=== PATIENT | female | born 1970 | race Hispanic/Latino ===

== ENCOUNTER 2018-05-05 06:39 | Emergency (ER) | payer MEDICARE ==
[~2018-05-05] VITALS: Ht 175.3 cm; Wt 125.2 kg
--- OUTSIDE RECORDS SUMMARY | 2018-05-05 06:42 | XMS REPORT | Clinical Summary ---
Author [facility] Address Unknown Phone Unavailable Care Team Providers Care Exhibit Display Representative Name Role Phone Cecilia Rahman MD PCP Allergies Active Allergy Reactions Severity Noted Date Comments Chicken Derived Hives 02/12/2016 Ciprofloxacin (Bulk) Hives 02/12/2016 Egg Rash Low 02/12/2016 Latex, Natural Rubber Hives 02/12/2016 Allergic to bandaids, adhesive tape-Itch, rash, hives Milk Rash Low 02/12/2016 Nut Flavor Swelling Medium 02/12/2016 Peanuts/pecans Ondansetron Hcl Rash Low 02/12/2016 Bent Hives 02/12/2016 Sulfa (Sulfonamide Other (See Comments) Medium 02/12/2016 Shortness of breath Antibiotics) Hydrocodone-Acetaminophen Hives 02/12/2016 Pt. States can take with Benadryl. Can tolerate Dilaudid and morphine. Current Medications Prescription Sig. Disp. Refills Start End Date Status Date traZODone (DESYREL) 100 Take 200 mg by mouth 01/30/20 Active MG tablet nightly. 16 SUMAtriptan (IMITREX) 100 Take 1 tablet by mouth at 01/26/20 Active MG tablet onset of headache. Repeat 16 after 2 hours if needed. Maximum 200mg/24 hours.. propranolol (INDERAL) 20 Take 20 mg by mouth 3 01/26/20 Active MG tablet (three) times a day. 16 montelukast (SINGULAIR) Take 10 mg by mouth 03/12/20 Active 10 mg tablet nightly. 15 methotrexate 2.5 MG Take 20 mg by mouth once 12/08/19 Active tablet a week. 8 tabs weekly on Sundays levothyroxine (SYNTHROID) Take 88 mcg by mouth 03/12/20 Active 88 MCG tablet every morning. 15 fluticasone (FLONASE) 50 1 spray 2 (two) times a 05/19/20 Active mcg/actuation nasal spray day. 15 cycloSPORINE (RESTASIS) Administer 1 drop to both 11/05/19 Active 0.05 % ophthalmic eyes every 12 (twelve) 15 emulsion hours. clonAZEPAM (KlonoPIN) 2 Take 2 mg by mouth 3 01/26/20 Active MG tablet (three) times a day. 16 busPIRone (BUSPAR) 10 MG Take 20 mg by mouth 3 01/30/20 Active tablet (three) times a day. 16 ARIPiprazole (ABILIFY) 10 Take 10 mg by mouth 01/30/20 Active MG tablet nightly. 16 ipratropium-albuterol Inhale 2 puffs every 4 09/26/19 Active (COMBIVENT) 18-103 (four) hours as needed 14 mcg/actuation inhaler for wheezing or shortness of breath. tiZANidine (ZANAFLEX) 4 Take 4 mg by mouth every Active MG tablet 8 (eight) hours as needed for muscle spasms. budesonide-formoterol Inhale 2 puffs 2 (two) 01/18/20 Active (SYMBICORT) 160-4.5 times a day. 17 mcg/actuation inhaler aspirin (ECOTRIN) 81 MG Take 81 mg by mouth Active enteric coated tablet daily. omeprazole (PriLOSEC) 40 TAKE ONE CAPSULE BY MOUTH 90 capsule 5 05/06/20 Active MG capsuleIndications: EVERY DAY BEFORE 17 Status post bariatric BREAKFAST surgery, Morbid obesity due to excess calories (HCC) cyanocobalamin, vitamin Place 1 tablet under the Active B-12, (VITAMIN B-12) tongue daily. 1,000 mcg tablet, sublingual pregabalin (LYRICA) 75 MG Take 100 mg by mouth 3 Active capsule (three) times a day. therapeutic multivitamin Take 1 tablet by mouth Active (THERAGRAN) tablet daily. divalproex (DEPAKOTE) 500 Take 1,000 mg by mouth Active MG EC tablet every morning. divalproex (DEPAKOTE) 500 Take 500 mg by mouth Active MG EC tablet nightly. predniSONE (DELTASONE) 5 Take 20 mg by mouth 2 Active mg tablet (two) times a day. methocarbamol (ROBAXIN) Take 500 mg by mouth as Active 500 MG tablet needed for muscle spasms. DULoxetine (CYMBALTA) 30 TK 1 C PO D FOR 2 WEEKS. 0 04/03/20 Active MG capsule INCREASE TO 1 C 2 XD 18 THEREAFTER acetaminophen-codeine TK 1 T PO Q SIX H PRN P 2 04/10/20 Active (TYLENOL WITH CODEINE #3) 18 300-30 mg per tablet furosemide (LASIX) 20 mg TK 1 T PO BID 2 03/21/20 Active tablet 18 hydrOXYzine (ATARAX) 25 TK 1 T PO NIGHTLY HS PRF 11 03/21/20 Active MG tablet ITCHING 18 methocarbamol (ROBAXIN) 04/10/20 Active 750 MG tablet 18 promethazine (PHENERGAN) TK 1 T PO Q 6 H FOR UP TO 0 04/03/20 Active 25 MG tablet 7 DAYS PRF NAUSEA OR VOM 18 triamcinolone (KENALOG) TORO EXT AA BID 0 04/03/20 Active 0.1 % cream 18 cyanocobalamin, vitamin Place 1 tablet under the 30 each 5 04/20/20 05/20/20 Active B-12, (VITAMIN B-12) tongue daily for 30 days. 18 18 1,000 mcg tablet, sublingual omeprazole (PriLOSEC) 40 Take 1 capsule (40 mg 30 capsule 3 04/20/20 08/18/19 Active MG capsule total) by mouth daily for 18 19 120 days. hyoscyamine (LEVSIN/SL) Take 1 tablet (0.125 mg 30 tablet 0 05/02/20 06/01/20 0.125 mg SL tablet total) by mouth every 4 17 17 (four) hours as needed for cramping for up to 30 days. Active Problems Problem Noted Date Dehydration 04/05/2017 Gastric bypass status for obesity 03/28/2017 Encounters Date Type Specialty Care Team Description 04/20/2018 Office Visit General Surgery Verena Craig PA Weight loss (Primary Dx); BMI 40.0-44.9, adult (HCC); Lupus erythematosus, unspecified form; Anxiety and depression; Essential hypertension; Other hyperlipidemia; Other specified hypothyroidism 04/20/2018 Lab Lab Dean Parmar MD Bariatric surgery status (Primary Dx); Morbid obesity (HCC); Idiopathic steatorrhea 03/21/2018 Refill General Surgery Dean Parmar MD 06/29/2017 Orders Only General Surgery Joel Villeda, JESSI Status post bariatric surgery (Primary Dx); Morbid obesity due to excess calories; Intestinal malabsorption, unspecified type 06/15/2017 Orders Only General Surgery Alisha Paul MA Morbid (severe) obesity due to excess calories (Primary Dx); Vitamin deficiency; Weight loss; Intestinal malabsorption, unspecified type; Status post bariatric surgery; Hyperlipidemia, unspecified hyperlipidemia type; Hypothyroidism, unspecified type after 05/04/2017 Family History Medical History Relation Name Comments Diabetes Father Heart disease Father Hypertension Mother Relation Name Status Comments Father Mother Social History Tobacco Use Types Packs/Day Years Used Date Never Smoker Smokeless Tobacco: Never Used Alcohol Use Drinks/Week oz/Week Comments No Sex Assigned at Date Recorded Not on file Last Filed Vital Signs Vital Sign Reading Time Taken Blood Pressure 124/85 04/20/2018 10:20 AM CDT Pulse 68 04/20/2018 10:20 AM CDT Temperature 35.9 C (96.6 F) 04/20/2018 10:20 AM CDT Respiratory Rate 18 04/20/2018 10:20 AM CDT Oxygen Saturation 97% 04/20/2018 10:20 AM CDT Inhaled Oxygen - - Concentration Weight 126 kg (276 lb 12.8 oz) 04/20/2018 10:20 AM CDT Height 175.3 cm (5' 9") 04/20/2018 10:20 AM CDT Body Mass Index 40.88 04/20/2018 10:20 AM CDT Plan of Treatment Health Maintenance Due Date Last Done Comments CERVICAL CANCER SCREENING 1992 INFLUENZA VACCINE 02/15/2018 Implants Implanted Type Area Cad Designer Drafter Device Expiration Model / Identifier Date Serial / Lot Drain Wound Hbls [facility] Surgical N/A: N/A 2229 / Trocar Ashley White 0.18in 15fr - Implants; / [id number] Expanders; Implanted: 03/28/2017 (Quantity not Extenders; on file) Surgical Wires Procedures Procedure Name Priority Date/Time Associated Diagnosis Comments ESTIMATED GFR Routine 04/20/2018 Results for this 10:08 AM CDT procedure are in the results section. T3 Routine 04/20/2018 Bariatric surgery status Results for this 10:08 AM CDT Morbid obesity (HCC) procedure are in the Idiopathic steatorrhea results section. ZINC LEVEL, SERUM Routine 04/20/2018 Bariatric surgery status Results for this 10:08 AM CDT Morbid obesity (HCC) procedure are in the Idiopathic steatorrhea results section. VITAMIN B1 LEVEL, WHOLE Routine 04/20/2018 Bariatric surgery status Results for this BLOOD 10:08 AM CDT Morbid obesity (HCC) procedure are in the Idiopathic steatorrhea results section. FERRITIN LEVEL Routine 04/20/2018 Bariatric surgery status Results for this 10:08 AM CDT Morbid obesity (HCC) procedure are in the Idiopathic steatorrhea results section. FOLATE LEVEL Routine 04/20/2018 Bariatric surgery status Results for this 10:08 AM CDT Morbid obesity (HCC) procedure are in the Idiopathic steatorrhea results section. COPPER LEVEL, SERUM Routine 04/20/2018 Bariatric surgery status Results for this 10:08 AM CDT Morbid obesity (HCC) procedure are in the Idiopathic steatorrhea results section. VITAMIN D 25 HYDROXY Routine 04/20/2018 Bariatric surgery status Results for this LEVEL 10:08 AM CDT Morbid obesity (HCC) procedure are in the Idiopathic steatorrhea results section. VITAMIN B12 LEVEL Routine 04/20/2018 Bariatric surgery status Results for this 10:08 AM CDT Morbid obesity (HCC) procedure are in the Idiopathic steatorrhea results section. VITAMIN A LEVEL, PLASMA Routine 04/20/2018 Bariatric surgery status Results for this OR SERUM 10:08 AM CDT Morbid obesity (HCC) procedure are in the Idiopathic steatorrhea results section. PARATHYROID HORMONE Routine 04/20/2018 Bariatric surgery status Results for this 10:08 AM CDT Morbid obesity (HCC) procedure are in the Idiopathic steatorrhea results section. HEMOGLOBIN A1C Routine 04/20/2018 Bariatric surgery status Results for this 10:08 AM CDT Morbid obesity (HCC) procedure are in the Idiopathic steatorrhea results section. THYROID STIMULATING Routine 04/20/2018 Bariatric surgery status Results for this HORMONE 10:08 AM CDT Morbid obesity (HCC) procedure are in the Idiopathic steatorrhea results section. T4, FREE Routine 04/20/2018 Bariatric surgery status Results for this 10:08 AM CDT Morbid obesity (HCC) procedure are in the Idiopathic steatorrhea results section. TOTAL IRON BINDING Routine 04/20/2018 Bariatric surgery status Results for this CAPACITY 10:08 AM CDT Morbid obesity (HCC) procedure are in the Idiopathic steatorrhea results section. LIPID PANEL Routine 04/20/2018 Bariatric surgery status Results for this 10:08 AM CDT Morbid obesity (HCC) procedure are in the Idiopathic steatorrhea results section. HC COMPLETE BLD COUNT Routine 04/20/2018 Bariatric surgery status Results for this W/AUTO DIFF 10:08 AM CDT Morbid obesity (HCC) procedure are in the Idiopathic steatorrhea results section. COMPREHENSIVE METABOLIC Routine 04/20/2018 Bariatric surgery status Results for this PANEL 10:08 AM CDT Morbid obesity (HCC) procedure are in the Idiopathic steatorrhea results section. after 05/04/2017 Results * Estimated GFR (04/20/2018 10:08 AM) Estimated GFR 82 mL/min/1.73 m2 [facility] DEPARTMENT OF Comment: PATHOLOGY AND [employer] GENOMIC MEDICINE rpretation G1 >=90 Normal or high G2 60-89Mildly decreased [id number] Mildly to moderately decreased [id number] Moderately to severely decreased G4 15-29Severely decreased G5 <15Kidney failure The eGFR was calculated using the Chronic Kidney Disease Epidemiology Collaboration (CKD-EPI) equation. Interpretation is based on recommendations of the National Kidney Foundation-Kidney Disease Outcomes Quality Initiative (NKF-KDOQI) published in 2014. Specimen Plasma specimen Performing Organization Address [facility] Phone Number [address] * Total iron binding capacity (04/20/2018 10:08 AM) Iron level 43 37 - 145 ug/dL [facility] OF PATHOLOGY [facility] Iron binding capacity 447 (H) 200 - 400 ug/dL [facility] OF PATHOLOGY AND [facility] % Saturation 9.6 (L) 15.0 - 38.0 % [facility] PATHOLOGY [facility] Specimen Plasma specimen Performing Organization Address [facility] Phone Number [address] * Copper level, serum (04/20/2018 10:08 AM) Copper 124 80 - 155 ug/dL [facility] Comment: INTERPRETIVE INFORMATION: Copper, Serum or Plasma Serum copper may be elevated with infection, inflammation, stress, and copper supplementation. In females, elevated copper may also be caused by oral contraceptives and (concentrations may be elevated up to 3 times normal during the third trimester). Serum copper may be reduced by use of corticosteroids and zinc and by malnutrition or malabsorption. See Compliance Statement B at [email or web address] Performed by [facility], [address] [place] [address] [email or web address], Ambrocio Luna MD - Lab. Director Specimen Blood Performing Organization Address [facility] Phone Number [facility] [address] [place] [address] * Vitamin B1 level, whole blood (04/20/2018 10:08 AM) Vitamin B1 88 70 - 180 nmol/L [facility] Comment: INTERPRETIVE INFORMATION: Vitamin B1, Whole Blood This assay measures the concentration of thiamine diphosphate (TDP), the primary active form of vitamin B1. Approximately 90 percent of vitamin B1 present in whole blood is TDP. Thiamine and thiamine monophosphate, which comprise the remaining 10 percent, are not measured. Test developed and characteristics determined by [employer]. See Compliance Statement B: [employer]/CS Performed by [employer], [address] [place] [id number] [email or web address], Ambrocio Luna MD - Lab. Director Specimen Plasma specimen Performing Organization Address [facility] [place], [place] Phone Number [facility] [address] [place] [address] * Zinc level, serum (04/20/2018 10:08 AM) Zinc 77 60 - 120 ug/dL [facility] Comment: INTERPRETIVE INFORMATION: Zinc, Serum or Plasma Circulating zinc concentrations are dependent on albumin status and are depressed with malnutrition. Zinc may also be lowered with infection, inflammation, stress, oral contraceptives, and . Zinc may be elevated with zinc supplementation or fasting. Elevated zinc concentrations may interfere with copper absorption. Test developed and characteristics determined by [employer]. See Compliance Statement B: [employer]/CS Performed by [employer] [facility], [address] [place] [id number] [email or web address], Ambrocio Luna MD - Lab. Director Specimen Blood Performing Organization Address [facility] Phone Number [facility] [address] [place] [address] * Vitamin A level, plasma or serum (04/20/2018 10:08 AM) Vitamin A (retinol) 0.47 0.30 - 1.20 mg/L [facility] Retinyl palmitate <0.02 0.00 - 0.10 mg/L [facility] Vitamin A interpretation Normal [facility] Comment: Test developed and characteristics determined by [employer]. See Compliance Statement B: [employer]/CS Performed by [employer] [facility], [address] [place] [address] [email or web address], Ambrocio Luna MD - Lab. Director Specimen Plasma specimen Performing Organization Address [facility]/Zipcode Phone Number [facility] [address] [place] [address] * Vitamin D 25 hydroxy level (04/20/2018 10:08 AM) Vitamin D, 25-hydroxy 13.5 (L) 30.0 - 150.0 ng/mL [facility] DEPARTMENT OF Comment: PATHOLOGY AND This assay reports the sum of GENOMIC MEDICINE 25-hydroxy vitamin D3 and 25-hydroxy vitamin D2. Reference range: 0-17 years: Deficiency: less than 20ng/mL Optimum level: greater than or equal to 20 ng/mL. 18 years and older: Deficiency: less than 20ng/mL Insufficiency: 20-29 ng/mL Optimum Level: 30-80 ng/mL The assay reportable range is 3.4155.9 ng/mL. Levels higher than 150 ng/mL may be associated with toxicity. If toxicity is clinically suspected and the reported result is >155.9 ng/mL,contact lab for alternative methods to obtain a definitivelevel. If separate quantitation of 25-hydroxy vitamin D3 and 25-hydroxy vitamin D2 is needed, please contact lab for alternative methods. Specimen Blood Performing Organization Address [facility]/Zipcode Phone Number [address] [address] PATHOLOGY AND GENOMIC MEDICINE * CBC with platelet and differential (04/20/2018 10:08 AM) WBC 6.14 4.50 - 11.00 k/uL [facility] DEPARTMENT OF PATHOLOGY AND GENOMIC MEDICINE RBC 4.42 4.20 - 5.50 m/uL [facility] DEPARTMENT OF PATHOLOGY AND GENOMIC MEDICINE HGB 11.4 (L) 12.0 - 16.0 g/dL [facility] DEPARTMENT OF PATHOLOGY AND GENOMIC MEDICINE HCT 37.8 37.0 - 47.0 % [facility] DEPARTMENT OF PATHOLOGY AND GENOMIC MEDICINE MCV 85.5 82.0 - 100.0 fL [facility] DEPARTMENT OF PATHOLOGY AND GENOMIC MEDICINE MCH 25.8 (L) 27.0 - 34.0 pg [facility] DEPARTMENT OF PATHOLOGY AND GENOMIC MEDICINE MCHC 30.2 (L) 31.0 - 37.0 g/dL [facility] DEPARTMENT OF PATHOLOGY AND GENOMIC MEDICINE RDW - SD 47.0 37.0 - 55.0 fL [facility] DEPARTMENT OF PATHOLOGY AND GENOMIC MEDICINE MPV 9.2 8.8 - 13.2 fL [facility] DEPARTMENT OF PATHOLOGY AND GENOMIC MEDICINE Platelet count 369 150 - 400 k/uL [facility] DEPARTMENT OF PATHOLOGY AND GENOMIC MEDICINE Nucleated RBC 0.00 /100 WBC [facility] DEPARTMENT OF PATHOLOGY AND GENOMIC MEDICINE Neutrophils 51.0 39.0 - 69.0 % [facility] DEPARTMENT OF PATHOLOGY AND GENOMIC MEDICINE Lymphocytes 40.2 25.0 - 45.0 % [facility] DEPARTMENT OF PATHOLOGY AND GENOMIC MEDICINE Monocytes 6.5 0.0 - 10.0 % [facility] DEPARTMENT OF PATHOLOGY AND GENOMIC MEDICINE Eosinophils 1.8 0.0 - 5.0 % [facility] DEPARTMENT OF PATHOLOGY AND GENOMIC MEDICINE Basophils 0.2 0.0 - 1.0 % [facility] DEPARTMENT OF PATHOLOGY AND GENOMIC MEDICINE Immature granulocytes 0.3Comment: "Immature 0.0 - 1.0 % [facility] DEPARTMENT OF granulocytes" (promyelocytes, PATHOLOGY AND myelocytes, metamyelocytes) GENOMIC MEDICINE Specimen Blood Performing Organization Address [facility] [address] PATHOLOGY AND GENOMIC MEDICINE * T3 (04/20/2018 10:08 AM) T3 72 (L) 80 - 200 ng/dL [facility] DEPARTMENT OF PATHOLOGY AND GENOMIC MEDICINE Specimen Plasma specimen Performing Organization Address [facility] [address] PATHOLOGY AND [facility] MEDICINE * Thyroid stimulating hormone (04/20/2018 10:08 AM) TSH 2.65 0.27 - 4.20 uIU/mL [facility] DEPARTMENT OF PATHOLOGY AND GENOMIC MEDICINE Specimen Plasma specimen Performing Organization Address [facility] [address] PATHOLOGY AND [facility] MED[facility] * T4, free (04/20/2018 10:08 AM) T4, free 0.9 0.9 - 1.7 ng/dL [facility] DEPARTMENT OF PATHOLOGY AND GENOMIC MEDICINE Specimen Plasma specimen Performing Organization Address [facility] [address] PATHOLOGY AND [facility] * Parathyroid hormone (04/20/2018 10:08 AM) PTH 70 (H) 15 - 65 pg/mL [facility] DEPARTMENT OF PATHOLOGY AND GENOMIC MEDICINE Specimen Blood Performing Organization Address [facility] [address] PATHOLOGY AND [facility] MED[facility] * Hemoglobin A1c (04/20/2018 10:08 AM) Hemoglobin A1C 5.7 (H) 4.0 - 5.6 % [facility] DEPARTMENT OF Comment: PATHOLOGY AND HbA1c cutoffs for diagnosing GENOMIC MEDICINE diabetes: 4.0% - 5.6%=normal 5.7% - 6.4%=increased risk for diabetes (prediabetes) >=6.5%=diabetes Goals for glycemic control (ADA 2016) < 7.0%Target for non adults with diabetes. More or less stringent targets may be appropriate for individual patients. <7.5% Target for Children and adolescents with type 1 diabetes. Specimen Blood Performing Organization Address [facility] [address] PATHOLOGY AND [facility] * Folate level (04/20/2018 10:08 AM) Folate 11.4 4.8 - 24.2 ng/mL [facility] DEPARTMENT OF PATHOLOGY AND GENOMIC MEDICINE Specimen Serum Performing Organization Address [facility] [address] PATHOLOGY AND [facility] * Ferritin level (04/20/2018 10:08 AM) Ferritin level <13 (A) 13 - 150 ng/mL [facility] DEPARTMENT OF PATHOLOGY AND GENOMIC MEDICINE Specimen Plasma specimen Performing Organization Address [facility] [address] PATHOLOGY AND [facility] * Vitamin B12 level (04/20/2018 10:08 AM) Vitamin B12 269 211 - 946 pg/mL [facility] DEPARTMENT OF Comment: PATHOLOGY AND Significant overlap exists GENOMIC MEDICINE between normal and deficiency states. However, most patients with deficiencies will have Serum B12 <200 pg/mL. Specimen Serum Performing Organization Address [facility]/Zipcode Phone Number [address] [address] PATHOLOGY AND GENOMIC MEDICINE * Lipid panel (04/20/2018 10:08 AM) Cholesterol 149 <200 mg/dL [facility] DEPARTMENT OF PATHOLOGY AND GENOMIC MEDICINE Triglycerides 98 <150 mg/dL [facility] DEPARTMENT OF PATHOLOGY AND GENOMIC MEDICINE HDL cholesterol 56 >40 mg/dL [facility] DEPARTMENT OF PATHOLOGY AND GENOMIC MEDICINE LDL cholesterol 83Comment: Result obtained by <100 mg/dL [facility] DEPARTMENT OF direct LDL measurement PATHOLOGY AND GENOMIC MEDICINE Lipid panel SeeBelow [facility] DEPARTMENT OF interpretation Comment: PATHOLOGY AND Total Cholesterol GENOMIC MEDICINE (mg/dL) <200 Desirable 200-239Borderline -high >=240High Triglycerides (mg/dL) <150 Normal 150-199Borderline -high 200-499High >=500Very high HDL Cholesterol (mg/dL) <40Low (male) <40Low (female) LDL Cholesterol (mg/dL) <100 Optimal 100-129Near or above optimal 130-159Borderline -high 160-189High >=190Very high Risk Catergories that modify LDL goals. Risk Catergories LDL goal (mg/dL) CHD and CHD risk equivalent<100 (10-year risk >20%) Multiple (2+) risk factors <130 (10-year risk=<20%) 0-1 risk factors <160 (<10-year risk) Defining levels of lipids in metabolic syndrome Triglycerides >=150 mg/dL HDL Cholesterol Men <40 mg/dL Women <40 mg/dL Non-HDL cholesterol is a second target for therapy in persons with high triglycerides (>=200 mg/dL) Specimen Plasma specimen Performing Organization Address City/State/[place] Phone Number [address] [address] PATHOLOGY AND GENOMIC MEDICINE * Comprehensive metabolic panel (04/20/2018 10:08 AM) Sodium 143 135 - 148 mEq/L [facility] DEPARTMENT OF PATHOLOGY AND GENOMIC MEDICINE Potassium 4.5 3.5 - 5.0 mEq/L [facility] DEPARTMENT OF PATHOLOGY AND GENOMIC MEDICINE Chloride 103 98 - 112 mEq/L [facility] DEPARTMENT OF PATHOLOGY AND GENOMIC MEDICINE CO2 29 24 - 31 mEq/L [facility] DEPARTMENT OF PATHOLOGY AND GENOMIC MEDICINE Anion gap 11@ANIO 7 - 15 mEq/L [facility] DEPARTMENT OF PATHOLOGY AND GENOMIC MEDICINE BUN 16 6 - 20 mg/dL [facility] DEPARTMENT OF PATHOLOGY AND GENOMIC MEDICINE Creatinine 0.85 0.50 - 0.90 mg/dL [facility] DEPARTMENT OF PATHOLOGY AND GENOMIC MEDICINE Glucose 92 65 - 99 mg/dL [facility] DEPARTMENT OF PATHOLOGY AND GENOMIC MEDICINE Calcium 8.7 8.3 - 10.2 mg/dL [facility] DEPARTMENT OF PATHOLOGY AND GENOMIC MEDICINE Protein 7.4 6.3 - 8.3 g/dL [facility] DEPARTMENT OF Comment: PATHOLOGY AND [place] GENOMIC MEDICINE 4.6-7.0 g/dL 1 week 4.4-7.6 g/dL 7 months-1year 5.1-7.3 g/dL 1-2 years5.6-7 .5 g/dL >3 years6.0-8 .0 g/dL 18-150 6.3-8.3 g/dL Albumin 3.4 (L) 3.5 - 5.0 g/dL [facility] DEPARTMENT OF PATHOLOGY AND GENOMIC MEDICINE A/G ratio 0.8 0.7 - 3.8 [facility] DEPARTMENT OF PATHOLOGY AND GENOMIC MEDICINE Alkaline phosphatase 110 (H) 35 - 104 U/L [facility] DEPARTMENT OF PATHOLOGY AND GENOMIC MEDICINE AST 14 10 - 35 U/L [facility] DEPARTMENT OF PATHOLOGY AND GENOMIC MEDICINE ALT 8 5 - 50 U/L [facility] DEPARTMENT OF PATHOLOGY AND GENOMIC MEDICINE Total bilirubin 0.3 0.0 - 1.2 mg/dL [facility] DEPARTMENT OF PATHOLOGY AND GENOMIC MEDICINE Specimen Plasma specimen Performing Organization Address City/State/Zipcode Phone Number [facility] DEPARTMENT OF [address] [place] [address] PATHOLOGY AND GENOMIC MEDICINE after 05/04/2017 Insurance Payer Benefit Subscriber ID Type Phone Address Plan / Group AETNA MEDICARE AETNA xxxxxxxx HMO MEDICARE HMO/PPO [facility] MEDICAID MEDICAID xxxxxxxxx Medicaid
--- OUTSIDE RECORDS SUMMARY | 2018-05-05 06:42 | XMS REPORT | Continuity of Care Document ---
Author Author [facility] Interface Address Unknown Phone Unavailable Problems Problem Status Onset Date Classification Date Reported Comments Source DYSLIPIDEMIA Active 07/04/2013 Condition 07/04/2013 [facility] CELLULITIS AND ABSCESS OF OTHER SPECIFIED SITE Active 07/04/2013 Condition 07/04/2013 [facility] UNSPECIFIED HEART FAILURE Active 07/04/2013 Condition 07/04/2013 [facility] HYPOKALEMIA Active 04/10/2013 Condition 07/04/2013 [facility] DYSPNEA Active 04/10/2013 Condition 07/04/2013 [facility] HYPERGLYCEMIA Active 04/10/2013 Condition 07/04/2013 [facility] ANXIETY DEPRESSION Active 03/29/2013 Condition 07/04/2013 [facility] LUPUS Active 03/29/2013 Condition 07/04/2013 [facility] RAYNAUD'S DISEASE Active 03/29/2013 Condition 07/04/2013 [facility] HYPOTHYROIDISM Active 03/29/2013 Condition 07/04/2013 [facility] SLEEP APNEA Active 03/29/2013 Condition 07/04/2013 [facility] RECTAL BLEEDING Active 03/29/2013 Condition 07/04/2013 [facility] OTHER SCREENING MAMMOGRAM Active 03/29/2013 Condition 07/04/2013 [facility] OBESITY, CLASS III Active 03/29/2013 Condition 07/04/2013 [facility] ASTHMA Active Condition 07/04/2013 [facility] FH DIABETES - DM Active Condition 07/04/2013 [facility] Medications Medication Details Route Status Patient Instructions Ordering Provider Order Date Source AUGMENTIN 875-125 MG TABS take 1 tab po bid x 10 days Active 07/04/2013 [facility] ORALONE 0.1 % PSTE apply to mouth sores tid after meals Active 05/02/2013 [facility] LEVOTHYROXINE SODIUM 88 MCG TABS take 1 tab po qAM on empty stomach for thyroid Active 04/10/2013 [facility] ERGOCALCIFEROL 87848 UNIT CAPS take 1 tab po qweekly Active 04/10/2013 [facility] LEVOTHYROXINE SODIUM 88 MCG TABS take 1 tab po qAM on empty stomach for thyroid Active 04/10/2013 [facility] LORATADINE 10 MG TABS 1 po qd Active 03/29/2013 [facility] IBUPROFEN 200 MG TABS 4 po qd Active 03/29/2013 [facility] ABILIFY 10 MG TABS 1 po qd Active 03/29/2013 [facility] CYMBALTA 60 MG CPEP 2 po Qd Active 03/29/2013 [facility] SINGULAIR 10 MG TABS 1 po qhs Active 03/29/2013 [facility] METHOTREXATE 2.5 MG TABS take 8 tablet by mouth q week Active 03/29/2013 [facility] TRAZODONE HCL 100 MG TABS 2 po qhs Active 03/29/2013 [facility] NEXIUM 20 MG CPDR 2 po qd Active 03/29/2013 [facility] HYDRALAZINE HCL 10 MG TABS 1 po TID Active 03/29/2013 [facility] CLONAZEPAM 1 MG TABS 2 po TID Active 03/29/2013 [facility] HYDROXYCHLOROQUINE SULFATE 200 MG TABS 1 po BID Active 03/29/2013 [facility] GABAPENTIN 300 MG CAPS 1 po TID Active 03/29/2013 [facility] FOLIC ACID 1 MG TABS 1 po qd Active 03/29/2013 [facility] DIVALPROEX SODIUM 500 MG TBEC 1 po BID Active 03/29/2013 [facility] OPTIVAR 0.05 % SOLN 1 drop in each eye BID Active 03/29/2013 [facility] LORATADINE 10 MG TABS 1 po qd Active 03/29/2013 [facility] SINGULAIR 10 MG TABS 1 po qhs Active 03/29/2013 [facility] METHOTREXATE 2.5 MG TABS take 8 tablet by mouth q week Active 03/29/2013 [facility] TRAZODONE HCL 100 MG TABS 2 po qhs Active 03/29/2013 [facility] NEXIUM 20 MG CPDR 2 po qd Active 03/29/2013 [facility] GABAPENTIN 300 MG CAPS 1 po TID Active 03/29/2013 [facility] Allergies, Adverse Reactions, Alerts Substance Category Reaction Severity Reaction type Status Date Reported Comments Source TYLENOL Drug allergy TYLENOL 03/29/2013 [facility] CODEINE Drug allergy CODEINE 03/29/2013 [facility] MORPHINE Drug allergy MORPHINE 03/29/2013 [facility] Immunizations Immunization Date Given Site Status Last Updated Comments Source Results Order Name Results Value Reference Range Date Interpretation Comments Source Chemistry HGBA1C 5.1 % - 5.6 07/04/2013 [facility] CHOLESTEROL 163 mg/dl - 199 07/04/2013 [facility] Chemistry TRIGLYCERIDE 312 mg/dl - 149 07/04/2013 Medical [facility] Chemistry HDL 41 mg/dl >=61 07/04/2013 [facility] Chemistry LDL 60 mg/dl - 99 07/04/2013 [facility] Chemistry SODIUM 139 MEQ/L mmol/L 135 - 145 07/04/2013 [facility] Chemistry POTASSIUM 3.9 MEQ/L mmol/L 3.5 - 5.1 07/04/2013 [facility] Chemistry CREATININE 1.0 mg/dL 0.5 - 1.4 07/04/2013 [facility] Chemistry BUN 11 mg/dL 7 - 22 07/04/2013 Medical [facility] Chemistry BUN/CREAT 11 6 - 25 07/04/2013 [facility] Chemistry ALBUMIN 3.8 g/dL 3.5 - 5.0 07/04/2013 [facility] Chemistry CALCIUM 9.2 mg/dL 8.5 - 10.5 07/04/2013 [facility] Chemistry SGPT (ALT) 33 U/L 0 - 65 07/04/2013 [facility] Chemistry SGOT (AST) 29 U/L 0 - 37 07/04/2013 [facility] Chemistry ALK PHOS 71 U/L 39 - 136 07/04/2013 Medical [facility] Chemistry TSH 2.800 uIU/mL 0.360 - 3.740 07/04/2013 Medical [facility] Hematology HGB 13.3 g/dL 12.0 - 16.0 07/04/2013 Medical [facility] Hematology HCT 40.7 % 36.0 - 48.0 07/04/2013 Medical [facility] Hematology PLATELETS 349 K/CMM /mm3 133 - 450 07/04/2013 [facility] Chemistry CHOLESTEROL 207 mg/dl - 199 03/29/2013 [facility] Chemistry TRIGLYCERIDE 216 mg/dl - 149 03/29/2013 Medical [facility] Chemistry HDL 50 mg/dl >=61 03/29/2013 [facility] Chemistry CHOLESTEROL 207 mg/dl - 199 03/29/2013 [facility] Chemistry TRIGLYCERIDE 216 mg/dl - 149 03/29/2013 [facility] Chemistry HDL 50 mg/dl >=61 03/29/2013 Medical [facility] Chemistry LDL 114 mg/dl - 99 03/29/2013 [facility] Chemistry SODIUM 138 MEQ/L mmol/L 135 - 145 03/29/2013 [facility] Chemistry POTASSIUM 5.3 MEQ/L mmol/L 3.5 - 5.1 03/29/2013 [facility] Chemistry CREATININE 0.8 mg/dL 0.5 - 1.4 03/29/2013 [facility] Chemistry BUN 13 mg/dL 7 - 22 03/29/2013 Medical [facility] Chemistry BUN/CREAT 16 6 - 25 03/29/2013 Medical [facility] Chemistry ALBUMIN 3.6 g/dL 3.5 - 5.0 03/29/2013 Medical [facility] Chemistry CALCIUM 8.6 mg/dL 8.5 - 10.5 03/29/2013 [facility] Chemistry SGPT (ALT) 20 U/L 0 - 65 03/29/2013 [facility] Chemistry SGOT (AST) 35 U/L 0 - 37 03/29/2013 [facility] Chemistry ALK PHOS 80 U/L 39 - 136 03/29/2013 Medical [facility] Chemistry TSH 4.180 uIU/mL 0.360 - 3.740 03/29/2013 Medical [facility] Hematology HGB 13.0 g/dL 12.0 - 16.0 03/29/2013 Medical [facility] Hematology HCT 39.9 % 36.0 - 48.0 03/29/2013 Medical [facility] Hematology PLATELETS 289 K/CMM /mm3 133 - 450 03/29/2013 Medical [facility] Urinalysis UA COLOR Yellow 03/29/2013 Medical [facility] Urinalysis BACTERIA URN Occasional 03/29/2013 [facility] Urinalysis UA COLOR Yellow 03/29/2013 Medical [facility] Urinalysis BACTERIA URN Occasional 03/29/2013 Medical [facility] Vital Signs Vital Sign Value Date Comments Source Weight 348 07/04/2013 [facility] Temperature Oral (F) 98.1 F 07/04/2013 [facility] Heart Rate 92 07/04/2013 [facility] Systolic (mm Hg) 116 07/04/2013 [facility] Diastolic (mm Hg) 84 07/04/2013 [facility] Weight 358 04/10/2013 Medical [facility] Temperature Oral (F) 97.7 F 04/10/2013 Medical [facility] Heart Rate 95 04/10/2013 [facility] Systolic (mm Hg) 106 04/10/2013 [facility] Diastolic (mm Hg) 66 04/10/2013 [facility] Weight 354 03/29/2013 [facility] Height 68 03/29/2013 [facility] Heart Rate 106 03/29/2013 [facility] Temperature Oral (F) 98.3 F 03/29/2013 [facility] Systolic (mm Hg) 133 03/29/2013 [facility] Diastolic (mm Hg) 73 03/29/2013 [facility] Encounters Location Location Details Encounter Type Encounter Number Reason For Visit Attending Provider ADM Date DC Date Status Source [facility] Office Visit [id number] Deanna Epstein MD 04/10/2013 04/10/2013 Medical [facility] [place] Lab Report [id number] Deanna Epstein MD 04/15/2013 04/15/2013 Medical [facility] Office Visit [id number] Deanna Travis MD 07/04/2013 07/04/2013 Medical [facility] Lab Report [id number] Deanna Travis MD 07/04/2013 07/04/2013 [facility] Procedures Procedure Code Date Perfomer Comments Source
--- OUTSIDE RECORDS SUMMARY | 2018-05-05 06:42 | XMS REPORT | Continuity of Care Document ---
Author Author [facility] Address Unknown Phone Unavailable Care Team Providers Care Presiding Steward Name Role Phone Deanna Epstein MD, PP Unavailable Insurance Providers Payer name Policy type / Coverage type Policy ID Covered democrat ID Policy [place] [place] [employer] [place] [employer] Encounters Encounter Performer Location Date Office Visit Deanna Epstein MD [facility] Apr 10, 2013 Allergies, Adverse Reactions, Alerts Type Substance Reaction Status Drug allergy TYLENOL Active Drug allergy CODEINE Active Drug allergy MORPHINE Active Problems Problem Effective Dates Problem Status ASTHMA Active FH DIABETES - DM Active ANXIETY DEPRESSION Mar 29, 2013 Active LUPUS Mar 29, 2013 Active RAYNAUD'S DISEASE Mar 29, 2013 Active HYPOTHYROIDISM Mar 29, 2013 Active SLEEP APNEA Mar 29, 2013 Active RECTAL BLEEDING Mar 29, 2013 Active OTHER SCREENING MAMMOGRAM Mar 29, 2013 Active OBESITY, CLASS III Mar 29, 2013 Active HYPOKALEMIA Apr 10, 2013 Active DYSPNEA Apr 10, 2013 Active HYPERGLYCEMIA Apr 10, 2013 Active Procedures Date Description Comments Mar 29, 2013 smoking status never smoker Medications Medication Instructions Start Date Status LORATADINE 10 MG TABS 1 po qd Mar 29, 2013 Active IBUPROFEN 200 MG TABS 4 po qd Mar 29, 2013 Active ABILIFY 10 MG TABS 1 po qd Mar 29, 2013 Active CYMBALTA 60 MG CPEP 2 po Qd Mar 29, 2013 Active SINGULAIR 10 MG TABS 1 po qhs Mar 29, 2013 Active METHOTREXATE 2.5 MG TABS take 8 tablet by mouth q week Mar 29, 2013 Active TRAZODONE HCL 100 MG TABS 2 po qhs Mar 29, 2013 Active NEXIUM 20 MG CPDR 2 po qd Mar 29, 2013 Active HYDRALAZINE HCL 10 MG TABS 1 po TID Mar 29, 2013 Active CLONAZEPAM 1 MG TABS 2 po TID Mar 29, 2013 Active HYDROXYCHLOROQUINE SULFATE 200 MG TABS 1 po BID Mar 29, 2013 Active GABAPENTIN 300 MG CAPS 1 po TID Mar 29, 2013 Active FOLIC ACID 1 MG TABS 1 po qd Mar 29, 2013 Active DIVALPROEX SODIUM 500 MG TBEC 1 po BID Mar 29, 2013 Active OPTIVAR 0.05 % SOLN 1 drop in each eye BID Mar 29, 2013 Active LEVOTHYROXINE SODIUM 88 MCG TABS take 1 tab po qAM on empty stomach for thyroid Apr 10, 2013 Active ERGOCALCIFEROL 88775 UNIT CAPS take 1 tab po qweekly Apr 10, 2013 Active Vital Signs Date Description Test Result Mar 29, 2013 weight E&M - 3141-9 WEIGHT 354 lb Mar 29, 2013 height E&M - 8302-2 HEIGHT 68 in Mar 29, 2013 pulse rate E&M - 8867-4 PULSE RATE 106 /min Mar 29, 2013 temperature E&M TEMPERATURE 98.3 deg f Mar 29, 2013 blood pressure, systolic - 8480-6 BP SYSTOLIC 133 mm Hg Mar 29, 2013 blood pressure, diastolic - 8462-4 BP DIASTOLIC 73 mm Hg Apr 10, 2013 weight E&M - 3141-9 WEIGHT 358 lb Apr 10, 2013 temperature E&M TEMPERATURE 97.7 deg f Apr 10, 2013 pulse rate E&M - 8867-4 PULSE RATE 95 /min Apr 10, 2013 blood pressure, systolic - 8480-6 BP SYSTOLIC 106 mm Hg Apr 10, 2013 blood pressure, diastolic - 8462-4 BP DIASTOLIC 66 mm Hg Results Date Description Test Name Value Reference Interpretation Status Mar 29, 2013 hemoglobin, blood HGB 13.0 g/dL 12.0-16.0 Mar 29, 2013 hematocrit, blood HCT 39.9 % 36.0-48.0 Mar 29, 2013 platelet count PLATELETS 289 K/CMM /mm3 133-450 Mar 29, 2013 urine color UA COLOR Yellow null Yellow Mar 29, 2013 bacteria, urine microscopy BACTERIA URN Occasional null None Seen Mar 29, 2013 cholesterol, serum CHOLESTEROL 207 mg/dl <=199 High Mar 29, 2013 triglyceride, serum, fasting TRIGLYCERIDE 216 mg/dl <=149 High Mar 29, 2013 HDL cholesterol, serum HDL 50 mg/dl >=61 Low Mar 29, 2013 LDL cholesterol, serum LDL 114 mg/dl <=99 High Mar 29, 2013 sodium, serum SODIUM 138 MEQ/L mmol/L 135-145 Mar 29, 2013 potassium, serum POTASSIUM 5.3 MEQ/L mmol/L 3.5-5.1 High Mar 29, 2013 creatinine, serum CREATININE 0.8 mg/dL 0.5-1.4 Mar 29, 2013 urea nitrogen, blood BUN 13 mg/dL 7-22 Mar 29, 2013 urea nitrogen/creatinine ratio, serum BUN/CREAT 16 null 6-25 Mar 29, 2013 albumin, serum ALBUMIN 3.6 g/dL 3.5-5.0 Mar 29, 2013 calcium, serum CALCIUM 8.6 mg/dL 8.5-10.5 Mar 29, 2013 alanine aminotransferase (SGPT), serum SGPT (ALT) 20 U/L 0-65 Mar 29, 2013 aspartate aminotransferase (SGOT), serum SGOT (AST) 35 U/L 0-37 Mar 29, 2013 alkaline phosphatase, serum ALK PHOS 80 U/L 39-136 Mar 29, 2013 thyroid stimulating hormone, serum TSH 4.180 uIU/mL 0.360-3.740 High
--- OUTSIDE RECORDS SUMMARY | 2018-05-05 06:43 | XMS REPORT | Continuity of Care Document ---
Author Author [facility] Address Unknown Phone Unavailable Care Team Providers Care Community Resource Consultant Name Role Phone Lucian Travis MD, Deanna SOLIS Unavailable Insurance Providers Payer name Policy type / Coverage type Policy ID Covered democrat ID Policy [employer] [place] [employer] [id number] MED[place]: [employer] [id number] Encounters Encounter Performer Location Date Lab Report Deanna Travis MD [facility] Jul 04, 2013 Allergies, Adverse Reactions, Alerts Type Substance [...] 2013 Active HYPERGLYCEMIA Apr 10, 2013 Active DYSLIPIDEMIA Jul 04, 2013 Active CELLULITIS AND ABSCESS OF OTHER SPECIFIED SITE Jul 04, 2013 Active UNSPECIFIED HEART FAILURE Jul 04, 2013 Active Procedures Date Description Comments Mar [...] for thyroid Apr 10, 2013 Active ERGOCALCIFEROL 19301 UNIT CAPS take 1 tab po qweekly Apr 10, 2013 Active ORALONE 0.1 % PSTE apply to mouth sores tid after meals May 02, 2013 Active AUGMENTIN 875-125 MG TABS take 1 tab po bid x 10 days Jul 04, 2013 Active Vital Signs Date Description Test [...] - 8462-4 BP DIASTOLIC 66 mm Hg Jul 04, 2013 weight E&M - 3141-9 WEIGHT 348 lb Jul 04, 2013 temperature E&M TEMPERATURE 98.1 deg f Jul 04, 2013 pulse rate E&M - 8867-4 PULSE RATE 92 /min Jul 04, 2013 blood pressure, systolic - 8480-6 BP SYSTOLIC 116 mm Hg Jul 04, 2013 blood pressure, diastolic - 8462-4 BP DIASTOLIC 84 mm Hg Results Date Description Test Name Value Reference Interpretation Status Mar 29, 2013 hemoglobin, blood HGB 13.0 g/dL 12.0-16.0 Mar 29, 2013 hematocrit, blood HCT 39.9 % 36.0-48.0 Mar 29, 2013 platelet count PLATELETS 289 K/CMM /mm3 133-450 Jul 04, 2013 hemoglobin, blood HGB 13.3 g/dL 12.0-16.0 Jul 04, 2013 hematocrit, blood HCT 40.7 % 36.0-48.0 Jul 04, 2013 platelet count PLATELETS 349 K/CMM /mm3 133-450 Mar 29, 2013 urine [...] hormone, serum TSH 4.180 uIU/mL 0.360-3.740 High Jul 04, 2013 hemoglobin A1C, blood, as % of total hemoglobin HGBA1C 5.1 % <=5.6 Jul 04, 2013 cholesterol, serum CHOLESTEROL 163 mg/dl <=199 Jul 04, 2013 triglyceride, serum, fasting TRIGLYCERIDE 312 mg/dl <=149 High Jul 04, 2013 HDL cholesterol, serum HDL 41 mg/dl >=61 Low Jul 04, 2013 LDL cholesterol, serum LDL 60 mg/dl <=99 Jul 04, 2013 sodium, serum SODIUM 139 MEQ/L mmol/L 135-145 Jul 04, 2013 potassium, serum POTASSIUM 3.9 MEQ/L mmol/L 3.5-5.1 Jul 04, 2013 creatinine, serum CREATININE 1.0 mg/dL 0.5-1.4 Jul 04, 2013 urea nitrogen, blood BUN 11 mg/dL 7-22 Jul 04, 2013 urea nitrogen/creatinine ratio, serum BUN/CREAT 11 null 6-25 Jul 04, 2013 albumin, serum ALBUMIN 3.8 g/dL 3.5-5.0 Jul 04, 2013 calcium, serum CALCIUM 9.2 mg/dL 8.5-10.5 Jul 04, 2013 alanine aminotransferase (SGPT), serum SGPT (ALT) 33 U/L 0-65 Jul 04, 2013 aspartate aminotransferase (SGOT), serum SGOT (AST) 29 U/L 0-37 Jul 04, 2013 alkaline phosphatase, serum ALK PHOS 71 U/L 39-136 Jul 04, 2013 thyroid stimulating hormone, serum TSH 2.800 uIU/mL 0.360-3.740
--- OUTSIDE RECORDS SUMMARY | 2018-05-05 06:43 | XMS REPORT ---
Author Author [facility] Organization [facility] Address Unknown Phone Unavailable Care Team Providers Care Electric Welder Name Role Phone ChingMaryluKURTZTUCKER GU PP Unavailable Payers Payer Name Policy Type Policy Number Effective Date Expiration Date Problems This patient has no known problems. Allergies, Adverse Reactions, Alerts Allergy Name Allergy Type Status Severity Reaction(s) Onset Date Inactive Date Treating Clinician Comments hydrocodone bit DA Active SD 2018-04-13 00:00:00 ondansetron HCl DA Active SD 2018-04-13 00:00:00 Sulfa (Sulfonamide Antibiotics) DA Active SD 2018-04-13 00:00:00 acetaminophen DA Active SD 2018-04-13 00:00:00 ciprofloxacin DA Active 2018-04-13 00:00:00 cefoxitin DA Active SD 2018-04-13 00:00:00 egg DA Active SD 2018-04-13 00:00:00 peach DA Active 2018-04-13 00:00:00 latex DA Active SD 2018-04-13 00:00:00 milk DA Active SD 2018-04-13 00:00:00 chicken derived DA Active SD 2018-04-13 00:00:00 nut - unspecified DA Active 2018-04-13 00:00:00 hydrocodone bit DA Active SD 2018-03-30 00:00:00 ondansetron HCl DA Active SD 2018-03-30 00:00:00 Sulfa (Sulfonamide Antibiotics) DA Active SD 2018-03-30 00:00:00 acetaminophen DA Active SD 2018-03-30 00:00:00 ciprofloxacin DA Active 2018-03-30 00:00:00 cefoxitin DA Active SD 2018-03-30 00:00:00 egg DA Active SD 2018-03-30 00:00:00 peach DA Active 2018-03-30 00:00:00 latex DA Active SD 2018-03-30 00:00:00 milk DA Active SD 2018-03-30 00:00:00 chicken derived DA Active SD 2018-03-30 00:00:00 nut - unspecified DA Active 2018-03-30 00:00:00 hydrocodone bit DA Active SD 2018-01-25 00:00:00 ondansetron HCl DA Active SD 2018-01-25 00:00:00 Sulfa (Sulfonamide Antibiotics) DA Active SD 2018-01-25 00:00:00 codeine DA Active SD 2018-01-25 00:00:00 acetaminophen DA Active SD 2018-01-25 00:00:00 ciprofloxacin DA Active 2018-01-25 00:00:00 cefoxitin DA Active SD 2018-01-25 00:00:00 egg DA Active SD 2018-01-25 00:00:00 peach DA Active 2018-01-25 00:00:00 latex DA Active SD 2018-01-25 00:00:00 milk DA Active SD 2018-01-25 00:00:00 chicken derived DA Active SD 2018-01-25 00:00:00 nut - unspecified DA Active 2018-01-25 00:00:00 Medications This patient has no known medications. Encounters Start Date/Time End Date/Time Encounter Type Admission Type Attending [facility] Facility Care Department Encounter ID 2018-05-25 00:00:00 2018-05-25 00:00:[address] [facility] [id number] 2018-05-22 00:00:00 2018-05-22 00:00:[address] [facility] [id number] 2018-05-12 00:00:00 2018-05-12 00:00:[address] [facility] [id number] 2018-05-08 00:00:00 2018-05-08 00:00:[address] [facility] [id number] 2018-05-03 00:00:00 2018-05-03 00:00:[address] [facility] [id number] 2018-04-28 11:19:12 2018-04-28 11:19:[address] [facility] [id number] 2018-04-28 08:48:47 2018-04-28 08:48:[address] [facility] [id number] 2018-04-21 00:00:00 2018-04-21 00:00:[address] [facility] [id number] 2018-04-21 00:00:00 2018-04-21 00:00:[address] [facility] [id number] 2018-04-20 00:00:00 2018-04-20 00:00:00 Outpatient [facility] [id number] 2018-04-11 14:16:59 2018-04-11 14:16:[address] [facility] [id number] 2018-04-05 00:00:00 2018-04-05 00:00:[address] [facility] [id number] 2018-04-04 00:00:00 2018-04-04 00:00:[address] [facility] [id number] 2018-04-03 10:33:27 2018-04-03 10:33:[address] [facility] [id number] 2018-04-03 08:40:08 2018-04-03 08:40:[address] [facility] [id number] 2018-03-31 00:00:00 2018-03-31 00:00:[address] [facility] [id number] 2018-03-30 11:11:07 2018-03-30 11:11:07 Outpatient [facility] [id number] 2018-03-30 10:56:24 2018-03-30 10:56:24 Outpatient [facility] [id number] 2018-03-30 09:31:49 2018-03-30 09:31:[address] [facility] [id number] 2018-03-29 00:00:00 2018-03-29 00:00:[address] [facility] [id number] 2018-03-28 00:00:00 2018-03-28 00:00:00 Outpatient [facility] [id number] 2018-03-28 00:00:00 2018-03-28 00:00:00 Outpatient [facility] [id number] 2018-03-22 00:00:00 2018-03-22 00:00:00 Outpatient [facility] [id number] 2018-02-22 00:00:00 2018-02-22 00:00:00 Outpatient [facility] [id number] 2018-02-15 00:00:00 2018-02-15 00:00:[address] [facility] [id number] 2018-02-13 00:00:00 2018-02-13 00:00:00 Outpatient [facility] [id number] 2018-02-08 00:00:00 2018-02-08 00:00:00 Outpatient [facility] [id number] 2018-02-07 00:00:00 2018-02-07 00:00:00 Outpatient [facility] [id number] 2018-02-06 00:00:00 2018-02-06 00:00:[address] [facility] [id number] 2018-01-03 13:29:03 2018-01-03 13:29:03 Outpatient [facility] [id number] 2017-12-30 12:14:15 2017-12-30 12:14:15 Outpatient [facility] [id number] 2017-12-28 08:42:11 2017-12-28 08:42:[address] [facility] [id number] 2017-12-28 07:01:07 2017-12-28 07:01:07 Outpatient [facility] [id number] 2017-12-23 00:00:00 2017-12-23 00:00:00 Outpatient [facility] [id number] 2017-12-19 00:00:00 2017-12-19 00:00:[address] [facility] [id number] 2017-12-16 00:00:00 2017-12-16 00:00:[address] [facility] [id number] 2017-12-06 00:00:00 2017-12-06 00:00:00 Outpatient [facility] [id number] 2017-12-05 00:00:00 2017-12-05 00:00:00 Outpatient [facility] [id number] 2017-12-02 13:51:20 2017-12-02 13:51:20 Outpatient [facility] [id number] 2017-11-25 00:00:00 2017-11-25 00:00:00 Outpatient [facility] [id number] 2017-10-07 00:00:00 2017-10-07 00:00:00 Outpatient [facility] [id number] 2017-10-05 00:00:00 2017-10-05 00:00:00 Outpatient [facility] [id number] 2017-09-23 00:00:00 2017-09-23 00:00:[address] [facility] [id number] 2017-09-05 00:00:00 2017-09-05 00:00:[address] [facility] [id number] 2017-08-26 00:00:00 2017-08-26 00:00:[address] [facility] [id number] 2017-08-16 00:00:00 2017-08-16 00:00:[address] [facility] [id number] 2017-07-07 00:00:00 2017-07-07 00:00:00 Outpatient [facility] [id number] 2017-07-05 16:15:48 2017-07-05 16:15:48 Outpatient [facility] [id number] 2017-07-05 09:38:27 2017-07-05 09:38:27 Outpatient [facility] [id number] 2017-07-05 07:40:27 2017-07-05 07:40:[address] [facility] [id number] 2017-07-04 00:00:00 2017-07-04 00:00:[address] [facility] [id number] 2017-07-01 08:12:00 2017-07-01 08:12:[address] [facility] [id number] 2017-07-01 00:00:00 2017-07-01 00:00:[address] [facility] [id number] 2017-06-28 00:00:00 2017-06-28 00:00:[address] [facility] [id number] 2017-05-18 14:02:18 2017-05-18 14:02:[address] [facility] [id number] 2017-05-17 09:17:10 2017-05-17 09:17:10 Outpatient [facility] [id number] 2017-05-17 07:16:20 2017-05-17 07:16:20 Outpatient [facility] [id number] 2017-04-15 00:00:00 2017-04-15 00:00:00 Outpatient [facility] [id number] 2017-04-08 00:00:00 2017-04-08 00:00:00 Outpatient [facility] [id number] 2017-04-08 00:00:00 2017-04-08 00:00:00 Outpatient [facility] [id number] 2017-03-18 00:00:00 2017-03-18 00:00:00 Outpatient [facility] [id number] 2017-03-15 00:00:00 2017-03-15 00:00:[address] [facility] [id number] 2017-03-15 00:00:00 2017-03-15 00:00:[address] [facility] [id number] 2017-03-11 12:52:11 2017-03-11 12:52:[address] [facility] [id number] 2017-02-25 00:00:00 2017-02-25 00:00:[address] [facility] [id number] 2017-02-25 00:00:00 2017-02-25 00:00:[address] [facility] [id number] 2017-02-01 08:17:42 2017-02-01 08:17:[address] [facility] [id number] 2017-01-31 00:00:00 2017-01-31 00:00:[address] [facility] [id number] 2017-01-31 00:00:00 2017-01-31 00:00:[address] [facility] [id number] 2016-12-29 00:00:00 2016-12-29 00:00:[address] [facility] [id number] 2016-12-04 13:06:55 2016-12-04 13:06:[address] [facility] [id number] 2016-11-30 08:22:05 2016-11-30 08:22:[address] [facility] [id number] 2016-09-20 15:35:13 2016-09-20 15:35:[address] [facility] [id number] 2016-09-20 14:35:55 2016-09-20 14:35:[address] [facility] [id number] 2016-09-20 08:45:27 2016-09-20 08:45:[address] [facility] [id number] 2016-07-30 09:07:08 2016-07-30 09:07:[address] [facility] [id number] 2015-10-15 14:56:00 2015-10-15 14:56:00 Emergency [facility] [id number]
--- OUTSIDE RECORDS SUMMARY | 2018-05-05 06:43 | XMS REPORT | Continuity of Care Document ---
Author Author [facility] Address Unknown Phone Unavailable Care Team Providers Care Textile Broker Name Role Phone Deanna Epstein MD, PP Unavailable Insurance Providers Payer name Policy type / Coverage type Policy ID Covered alliance party ID Policy [place] [employer] [place] [employer] Encounters Encounter Performer Location Date Lab Report Deanna Epstein MD [facility] Apr 15, 2013 Allergies, Adverse Reactions, Alerts Type Substance [...] for thyroid Apr 10, 2013 Active ERGOCALCIFEROL 98904 UNIT CAPS take 1 tab po qweekly [...]
--- OUTSIDE RECORDS SUMMARY | 2018-05-05 06:43 | XMS REPORT | Continuity of Care Document ---
Author Author [facility] Address Unknown Phone Unavailable Care Team Providers Care Auto Dealership Porter Name Role Phone Lucian Travis MD, Deanna SOLIS Unavailable Insurance Providers Payer name Policy type / Coverage type Policy ID Covered constitution party ID Policy [place]OV[place] [employer] [place] [employer] HRS [employer] Encounters Encounter Performer Location Date Office Visit Deanna Travis MD [facility] Jul 04, 2013 Allergies, Adverse Reactions, Alerts [...] for thyroid Apr 10, 2013 Active ERGOCALCIFEROL 64170 UNIT CAPS take 1 tab po qweekly [...]
[2018-05-05] MEDS ORDERED: ACETAMINOPHEN 325 MG TAB PO ONE (07:15)
[2018-05-05] MEDS ORDERED: KLONOPIN1 MG (07:20)
[2018-05-05] MEDS ORDERED: DEPAKENE250 MG/5 M (07:20)
[2018-05-05] MEDS ORDERED: LEVOTHYROXINE100 MCG (07:21)
[2018-05-05] MEDS ORDERED: PREDNISONE5 MG (07:21)
[2018-05-05] MEDS ORDERED: METHOTREXATE2.5 MG PO (07:22)
[2018-05-05] MEDS ORDERED: LYRICA25 MG PO (07:22)
[2018-05-05] MEDS ORDERED: LASIX40 MG PO (07:22)
[2018-05-05] MEDS ORDERED: BUPROPION HCL75 MG PO (07:23)
[2018-05-05] MEDS ORDERED: TRAZODONE HCL50 MG PO (07:23)
[2018-05-05] MEDS ORDERED: ASPIR 8181 MG (07:24)
--- NOTE | 2018-05-05 07:37 | Diagnostic Imaging Report ---
PROCEDURE:HIP 2VW LT W/PELVIS - HOPD COMPARISON:None. INDICATIONS:lt hip pain, fall FINDINGS:No acute, displaced fracture or dislocation. The femoral heads project appropriately over the acetabulum. Hip joint spaces are symmetric and well maintained. Sacroiliac joints are intact. Sacral foramina are intact superiorly. Inferiorly, the distal sacrum and coccyx are obscured by rectal gas and stool. Pelvic phleboliths. Right lower quadrant surgical clips partially visualized. CONCLUSION: No acute osseous abnormality. Dictated by: Brigido Torres M.D. on 05/05/2018 at 7:45 Electronically approved by: Brigido Torres M.D. on 05/05/2018 at 7:45
[2018-05-05 08:27] VITALS: BP 109/83
== END 2018-05-05 08:29 | disposition home or self-care (01) ==
LOC: FSED 06:39
DX: M25.552 Pain in left hip (principal); W01.0XXA Fall on same level from slipping, tripping and stumbling without subsequent striking against object, initial encounter; Y93.01 Activity, walking, marching and hiking; Y92.008 Other place in unspecified non-institutional (private) residence as the place of occurrence of the external cause
CPT/HCPCS: 99283

== ENCOUNTER 2018-06-06 00:18 | Emergency (ER) | payer MEDICARE ==
[~2018-06-06] VITALS: Ht 175.3 cm; Wt 127.0 kg
[~2018-06-06 00:18] MED LIST: ASPIR 8181 MG; BUPROPION HCL75 MG PO; DEPAKENE250 MG/5 M; KLONOPIN1 MG; LASIX40 MG PO; LEVOTHYROXINE100 MCG; LYRICA25 MG PO; METHOTREXATE2.5 MG PO; PREDNISONE5 MG; TRAZODONE HCL50 MG PO
--- OUTSIDE RECORDS SUMMARY | 2018-06-06 00:21 | XMS REPORT | Continuity of Care Document ---
Author Author [facility] Address Unknown Phone Unavailable Problems Problem Status Onset Date Classification Date Reported Comments Source DYSLIPIDEMIA Active 07/04/2013 Condition 07/04/2013 [facility] CELLULITIS AND ABSCESS OF OTHER SPECIFIED SITE Active 07/04/2013 Condition 07/04/2013 [facility] UNSPECIFIED HEART FAILURE Active 07/04/2013 Condition 07/04/2013 [facility] HYPOKALEMIA Active 04/10/2013 Condition 07/04/2013 [facility] DYSPNEA Active 04/10/2013 Condition 07/04/2013 [facility] HYPERGLYCEMIA Active 04/10/2013 Condition 07/04/2013 [facility] ANXIETY DEPRESSION Active 03/29/2013 Condition 07/04/2013 [facility] LUPUS Active 03/29/2013 Condition 07/04/2013 [facility] RAYNAUD'S DISEASE Active 03/29/2013 Condition 07/04/2013 [facility] HYPOTHYROIDISM Active 03/29/2013 Condition 07/04/2013 [facility] SLEEP APNEA Active 03/29/2013 Condition 07/04/2013 [facility] RECTAL BLEEDING Active 03/29/2013 Condition 07/04/2013 [facility] OTHER SCREENING MAMMOGRAM Active 03/29/2013 Condition 07/04/2013 [facility] OBESITY, CLASS III Active 03/29/2013 Condition 07/04/2013 [facility] ASTHMA Active Condition 07/04/2013 [facility] FH DIABETES - DM Active Condition 07/04/2013 [facility] Medications Medication Details Route Status Patient Instructions Ordering Provider Order Date Source AUGMENTIN 875-125 MG TABS take 1 tab po bid x 10 days Active 07/04/2013 [facility] ORALONE 0.1 % PSTE apply to mouth sores tid after meals Active 05/02/2013 [facility] LEVOTHYROXINE SODIUM 88 MCG TABS take 1 tab po qAM on empty stomach for thyroid Active 04/10/2013 [facility] ERGOCALCIFEROL 98441 UNIT CAPS take 1 tab po qweekly Active 04/10/2013 [facility] LEVOTHYROXINE SODIUM 88 MCG TABS take [...] TRIGLYCERIDE 312 mg/dl - 149 07/04/2013 [facility] Chemistry HDL 41 mg/dl >=61 07/04/2013 [facility] Chemistry LDL 60 mg/dl - 99 07/04/2013 [facility] Chemistry SODIUM 139 MEQ/L mmol/L 135 - 145 07/04/2013 [facility] Chemistry POTASSIUM 3.9 MEQ/L mmol/L 3.5 - 5.1 07/04/2013 [facility] CREATININE 1.0 mg/dL 0.5 - 1.4 07/04/2013 [facility] Chemistry BUN 11 mg/dL 7 - 22 07/04/2013 [facility] Chemistry BUN/CREAT 11 6 - 25 07/04/2013 [facility] Chemistry ALBUMIN 3.8 g/dL 3.5 - 5.0 07/04/2013 [facility] Chemistry CALCIUM 9.2 mg/dL 8.5 - 10.5 07/04/2013 [facility] Chemistry SGPT (ALT) 33 U/L 0 - 65 07/04/2013 [facility] Chemistry SGOT (AST) 29 U/L 0 - 37 07/04/2013 [facility] Chemistry ALK PHOS 71 U/L 39 - 136 07/04/2013 [facility] Chemistry TSH 2.800 uIU/mL 0.360 - 3.740 07/04/2013 [facility] Hematology HGB 13.3 g/dL 12.0 - 16.0 07/04/2013 [facility] Hematology HCT 40.7 % 36.0 - 48.0 07/04/2013 [facility] Hematology PLATELETS 349 K/CMM /mm3 133 - 450 07/04/2013 [facility] Chemistry CHOLESTEROL 207 mg/dl - 199 03/29/2013 [facility] Chemistry TRIGLYCERIDE 216 mg/dl - 149 03/29/2013 [facility] Chemistry HDL 50 mg/dl >=61 03/29/2013 [facility] Chemistry CHOLESTEROL 207 mg/dl - 199 03/29/2013 [facility] Chemistry TRIGLYCERIDE 216 mg/dl - 149 03/29/2013 [facility] Chemistry HDL 50 mg/dl >=61 03/29/2013 [facility] Chemistry LDL 114 mg/dl - 99 03/29/2013 [facility] Chemistry SODIUM 138 MEQ/L mmol/L 135 - 145 03/29/2013 [facility] Chemistry POTASSIUM 5.3 MEQ/L mmol/L 3.5 - 5.1 03/29/2013 [facility] Chemistry CREATININE 0.8 mg/dL 0.5 - 1.4 03/29/2013 [facility] Chemistry BUN 13 mg/dL 7 - 22 03/29/2013 [facility] Chemistry BUN/CREAT 16 6 - 25 03/29/2013 [facility] Chemistry ALBUMIN 3.6 g/dL 3.5 - 5.0 03/29/2013 [facility] Chemistry CALCIUM 8.6 mg/dL 8.5 - 10.5 03/29/2013 [facility] Chemistry SGPT (ALT) 20 U/L 0 - 65 03/29/2013 [facility] Chemistry SGOT (AST) 35 U/L 0 - 37 03/29/2013 [facility] Chemistry ALK PHOS 80 U/L 39 - 136 03/29/2013 [facility] Chemistry TSH 4.180 uIU/mL 0.360 - 3.740 03/29/2013 [facility] Hematology HGB 13.0 g/dL 12.0 - 16.0 03/29/2013 [facility] Hematology HCT 39.9 % 36.0 - 48.0 03/29/2013 [facility] Hematology PLATELETS 289 K/CMM /mm3 133 - 450 03/29/2013 [facility] Urinalysis UA COLOR Yellow 03/29/2013 [facility] Urinalysis BACTERIA URN Occasional 03/29/2013 [facility] Urinalysis UA COLOR Yellow 03/29/2013 [facility] Urinalysis BACTERIA URN Occasional 03/29/2013 [facility] Vital Signs Vital Sign Value Date Comments Source Weight 348 07/04/2013 [facility] Temperature Oral (F) 98.1 F 07/04/2013 [facility] Heart Rate 92 07/04/2013 [facility] Systolic (mm Hg) 116 07/04/2013 [facility] Diastolic (mm Hg) 84 07/04/2013 [facility] Weight 358 04/10/2013 [facility] Temperature Oral (F) 97.7 F 04/10/2013 [facility] Heart Rate 95 04/10/2013 [facility] [...] Provider ADM Date DC Date Status Source [facility] Office Visit [id number] Deanna Epstein MD 04/10/2013 04/10/2013 Medical [facility] Lab Report [id number] Deanna Epstein MD 04/15/2013 04/15/2013 [facility] Lab Report [id number] Deanna Travis MD 07/04/2013 07/04/[address] [facility] Office Visit [id number] Deanna Travis MD 07/04/2013 07/04/2013 [facility] Procedures Procedure Code Date Perfomer Comments Source
--- OUTSIDE RECORDS SUMMARY | 2018-06-06 00:21 | XMS REPORT | Clinical Summary ---
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 States can take with Benadryl. Can tolerate Dilaudid and morphine. Hydrocodone-Acetaminophen Hives 02/12/2016 Medications End Date Status Medication Sig Dispensed Refills Start Date Active traZODone (DESYREL) 100 Take 200 mg 0 01/29/201 MG tablet by mouth 6 nightly. Active SUMAtriptan (IMITREX) 100 Take 1 tablet 0 201 MG tablet by mouth at 6 onset of headache. Repeat after 2 hours if needed. Maximum 200mg/24 hours.. Active propranolol (INDERAL) 20 Take 20 mg by 0 01/25/201 MG tablet mouth 3 6 (three) times a day. Active montelukast (SINGULAIR) Take 10 mg by 0 10 mg tablet mouth 5 nightly. Active methotrexate 2.5 MG Take 20 mg by 0 tablet mouth once a 6 week. 8 tabs weekly on Sundays Active levothyroxine (SYNTHROID) Take 88 mcg 0 88 MCG tablet by mouth 5 every morning. Active fluticasone (FLONASE) 50 1 spray 2 0 mcg/actuation nasal spray (two) times a 5 day. Active cycloSPORINE (RESTASIS) Administer 1 0 0.05 % ophthalmic drop to both 5 emulsion eyes every 12 (twelve) hours. Active clonAZEPAM (KlonoPIN) 2 Take 2 mg by 0 MG tablet mouth 3 6 (three) times a day. Active busPIRone (BUSPAR) 10 MG Take 20 mg by 0 tablet mouth 3 6 (three) times a day. Active ARIPiprazole (ABILIFY) 10 Take 10 mg by 0 MG tablet mouth 6 nightly. Active ipratropium-albuterol Inhale 2 0 (COMBIVENT) 18-103 puffs every 4 4 mcg/actuation inhaler (four) hours as needed for wheezing or shortness of breath. Active tiZANidine (ZANAFLEX) 4 Take 4 mg by 0 MG tablet mouth every 8 (eight) hours as needed for muscle spasms. Active budesonide-formoterol Inhale 2 0 (SYMBICORT) 160-4.5 puffs 2 (two) 7 mcg/actuation inhaler times a day. Active aspirin (ECOTRIN) 81 MG Take 81 mg by 0 enteric coated tablet mouth daily. Active omeprazole (PriLOSEC) 40 TAKE ONE 90 capsule 5 MG capsuleIndications: CAPSULE BY 7 Status post bariatric MOUTH EVERY surgery, Morbid obesity DAY BEFORE due to excess calories BREAKFAST (HCC) Active cyanocobalamin, vitamin Place 1 0 B-12, (VITAMIN B-12) tablet under 1,000 mcg tablet, the tongue sublingual daily. Active pregabalin (LYRICA) 75 MG Take 100 mg 0 capsule by mouth 3 (three) times a day. Active therapeutic multivitamin Take 1 tablet 0 (THERAGRAN) tablet by mouth daily. Active divalproex (DEPAKOTE) 500 Take 1,000 mg 0 MG EC tablet by mouth every morning. Active divalproex (DEPAKOTE) 500 Take 500 mg 0 MG EC tablet by mouth nightly. Active predniSONE (DELTASONE) 5 Take 20 mg by 0 mg tablet mouth 2 (two) times a day. Active methocarbamol (ROBAXIN) Take 500 mg 0 500 MG tablet by mouth as needed for muscle spasms. Active DULoxetine (CYMBALTA) 30 TK 1 C PO D 0 MG capsule FOR 2 WEEKS. 8 INCREASE TO 1 C 2 XD THEREAFTER Active acetaminophen-codeine TK 1 T PO Q 2 (TYLENOL WITH CODEINE #3) SIX H PRN P 8 300-30 mg per tablet Active furosemide (LASIX) 20 mg TK 1 T PO BID 2 tablet 8 Active hydrOXYzine (ATARAX) 25 TK 1 T PO 11 MG tablet NIGHTLY HS 8 PRF ITCHING Active methocarbamol (ROBAXIN) 0 750 MG tablet 8 Active promethazine (PHENERGAN) TK 1 T PO Q 6 0 25 MG tablet H FOR UP TO 7 8 DAYS PRF NAUSEA OR VOM Active triamcinolone (KENALOG) TORO EXT AA 0 0.1 % cream BID 8 08/18/2018 Active omeprazole (PriLOSEC) 40 Take 1 30 capsule 3 MG capsule capsule (40 8 mg total) by mouth daily for 120 days. 05/20/2018 cyanocobalamin, vitamin Place 1 30 each 5 B-12, (VITAMIN B-12) tablet under 8 1,000 mcg tablet, the tongue sublingual daily for 30 days. Active Problems Problem Noted Date Dehydration 04/05/2017 Gastric bypass status for obesity 03/28/2017 Encounters Care Team Description Date Type Specialty Verena Craig PA Weight loss (Primary Dx); BMI 40.0-44.9, adult (HCC); Lupus erythematosus, unspecified form; Anxiety and depression; Essential hypertension; Other hyperlipidemia; Other specified hypothyroidism 04/20/2018 Office Visit General Surgery Dean Parmar MD Bariatric surgery status (Primary Dx); Morbid obesity (HCC); Idiopathic steatorrhea 04/20/2018 Lab Lab Dean Parmar MD 03/21/2018 Refill General Surgery Joel Villeda, RN Status post bariatric surgery (Primary Dx); Morbid obesity due to excess calories; Intestinal malabsorption, unspecified type 06/29/2017 Orders Only General Surgery Alisha Paul MA Morbid (severe) obesity due to excess calories (Primary Dx); Vitamin deficiency; Weight loss; Intestinal malabsorption, unspecified type; Status post bariatric surgery; Hyperlipidemia, unspecified hyperlipidemia type; Hypothyroidism, unspecified type 06/15/2017 Orders Only General Surgery after 06/05/2017 Family History Medical History Relation Name Comments Diabetes Father Heart disease Father Hypertension Mother Relation Name Status Comments Father Mother Social History Date Tobacco Use Types Packs/Day Years Used Never Smoker Smokeless Tobacco: Never Used Alcohol Use Drinks/Week oz/Week Comments No Sex Assigned at Date Recorded Not on file Industry Job Start Date Occupation Not on file Not on file Not on file Travel End Travel History Travel Start No recent travel history available. Last Filed Vital Signs Time Taken Vital Sign Reading 04/20/2018 10:20 AM CDT Blood Pressure 124/85 04/20/2018 10:20 AM CDT Pulse 68 04/20/2018 10:20 AM CDT Temperature 35.9 C (96.6 F) 04/20/2018 10:20 AM CDT Respiratory Rate 18 04/20/2018 10:20 AM CDT Oxygen Saturation 97% - Inhaled Oxygen - Concentration 04/20/2018 10:20 AM CDT Weight 126 kg (276 lb 12.8 oz) 04/20/2018 10:20 AM CDT Height 175.3 cm (5' 9") 04/20/2018 10:20 AM CDT Body Mass Index 40.88 Plan of Treatment Health Maintenance Due Date Last Done Comments MMR VACCINES (1 of - 1972 Standard series) VARICELLA VACCINES (1 of 1984 2 - 2-dose adolescent series) CERVICAL CANCER SCREENING 1992 INFLUENZA VACCINE 02/15/2018 HEPATITIS B VACCINES Aged Out No longer eligible based on patient's age to complete this topic IPV VACCINES Aged Out No longer eligible based on patient's age to complete this topic MENINGOCOCCAL VACCINE Aged Out No longer eligible based on patient's age to complete this topic Implants Device Identifier Shelf Expiration Date Model / Serial / Lot Implanted Type Area Manufactur er [id number] / / Drain Wound Hbls Round [employer]opa[employer] Surgical N/A: N/A Trocar Ashley White 0.18in 15fr - Implants; [id number] Expanders; Implanted: 03/28/2017 (Quantity not Extenders; on file) Surgical Wires Procedures Comments Procedure Name Priority Date/Time Associated Diagnosis ESTIMATED GFR Routine 04/20/2018 10:08 AM CDT T3 Routine 04/20/2018 Bariatric surgery status 10:08 AM CDT Morbid obesity (HCC) Idiopathic steatorrhea ZINC LEVEL, SERUM Routine 04/20/2018 Bariatric surgery status 10:08 AM CDT Morbid obesity (HCC) Idiopathic steatorrhea VITAMIN B1 LEVEL, WHOLE Routine 04/20/2018 Bariatric surgery status BLOOD 10:08 AM CDT Morbid obesity (HCC) Idiopathic steatorrhea FERRITIN LEVEL Routine 04/20/2018 Bariatric surgery status 10:08 AM CDT Morbid obesity (HCC) Idiopathic steatorrhea FOLATE LEVEL Routine 04/20/2018 Bariatric surgery status 10:08 AM CDT Morbid obesity (HCC) Idiopathic steatorrhea COPPER LEVEL, SERUM Routine 04/20/2018 Bariatric surgery status 10:08 AM CDT Morbid obesity (HCC) Idiopathic steatorrhea VITAMIN D 25 HYDROXY Routine 04/20/2018 Bariatric surgery status LEVEL 10:08 AM CDT Morbid obesity (HCC) Idiopathic steatorrhea VITAMIN B12 LEVEL Routine 04/20/2018 Bariatric surgery status 10:08 AM CDT Morbid obesity (HCC) Idiopathic steatorrhea VITAMIN A LEVEL, PLASMA Routine 04/20/2018 Bariatric surgery status OR SERUM 10:08 AM CDT Morbid obesity (HCC) Idiopathic steatorrhea PARATHYROID HORMONE Routine 04/20/2018 Bariatric surgery status 10:08 AM CDT Morbid obesity (HCC) Idiopathic steatorrhea HEMOGLOBIN A1C Routine 04/20/2018 Bariatric surgery status 10:08 AM CDT Morbid obesity (HCC) Idiopathic steatorrhea THYROID STIMULATING Routine 04/20/2018 Bariatric surgery status HORMONE 10:08 AM CDT Morbid obesity (HCC) Idiopathic steatorrhea T4, FREE Routine 04/20/2018 Bariatric surgery status 10:08 AM CDT Morbid obesity (HCC) Idiopathic steatorrhea TOTAL IRON BINDING Routine 04/20/2018 Bariatric surgery status CAPACITY 10:08 AM CDT Morbid obesity (HCC) Idiopathic steatorrhea LIPID PANEL Routine 04/20/2018 Bariatric surgery status 10:08 AM CDT Morbid obesity (HCC) Idiopathic steatorrhea HC COMPLETE BLD COUNT Routine 04/20/2018 Bariatric surgery status W/AUTO DIFF 10:08 AM CDT Morbid obesity (HCC) Idiopathic steatorrhea COMPREHENSIVE METABOLIC Routine 04/20/2018 Bariatric surgery status PANEL 10:08 AM CDT Morbid obesity (HCC) Idiopathic steatorrhea after 06/05/2017 Results * Estimated GFR (04/20/2018 10:08 AM CDT) Estimated GFR 82 mL/min/1.73 m2 [facility] DEPARTMENT OF Comment: PATHOLOGY AND [employer] GENOMIC MEDICINE rpretation G1 >=90 Normal or high G2 60-89Mildly decreased T1r01-52 Mildly to moderately decreased A2a41-81 Moderately to severely decreased G4 15-29Severely decreased G5 <15Kidney failure The eGFR was calculated using the Chronic Kidney Disease Epidemiology Collaboration (CKD-EPI) equation. Interpretation is based on recommendations of the National Kidney Foundation-Kidney Disease Outcomes Quality Initiative (NKF-KDOQI) published in 2014. Specimen Plasma specimen Performing Organization Address [facility] [place] [address] PATHOLOGY AND [employer] MEDICINE * Total iron binding capacity (04/20/2018 10:08 AM CDT) Iron level 43 37 - 145 ug/dL [facility] DEPARTMENT OF PATHOLOGY AND GENOMIC MEDICINE Iron binding capacity 447 (H) 200 - 400 ug/dL [facility] DEPARTMENT OF PATHOLOGY AND GENOMIC MEDICINE % Saturation 9.6 (L) 15.0 - 38.0 % [facility] DEPARTMENT OF PATHOLOGY AND [employer] MEDICINE Specimen Plasma specimen Performing Organization Address [facility] Phone Number [address] [address] PATHOLOGY AND [employer] MEDICINE * Copper level, serum (04/20/2018 10:08 AM CDT) Copper 124 80 - 155 ug/dL [facility] Comment: INTERPRETIVE INFORMATION: Copper, Serum or [...] or malabsorption. See Compliance Statement B at [email or web address] Performed by [facility], [address] [place] [address] www.[email or web address], Ambrocio Luna MD - Lab. Director Specimen Blood Performing Organization Address [facility] Phone Number [facility] [address] [place] [address] * Vitamin B1 level, whole blood (04/20/2018 10:08 AM CDT) Vitamin B1 88 70 - 180 nmol/L [facility] Comment: INTERPRETIVE INFORMATION: Vitamin B1, Whole Blood This assay measures the concentration of thiamine diphosphate (TDP), the primary active form of vitamin B1. Approximately 90 percent of vitamin B1 present in whole blood is TDP. Thiamine and thiamine monophosphate, which comprise the remaining 10 percent, are not measured. Test developed and characteristics determined by [facility]. See Compliance Statement B: [employer]CS Performed by [facility], [address] [place] [id number] www.[email or web address], Ambrocio Luna MD - Lab. Director Specimen Plasma specimen Performing Organization Address [facility] Number [facility] [address] [place] [address] * Zinc level, serum (04/20/2018 10:08 AM CDT) Zinc 77 60 - 120 ug/dL [facility] Comment: INTERPRETIVE INFORMATION: Zinc, Serum or Plasma Circulating zinc concentrations are dependent on albumin status and are depressed with malnutrition. Zinc may also be lowered with infection, inflammation, stress, oral contraceptives, and . Zinc may be elevated with zinc supplementation or fasting. Elevated zinc concentrations may interfere with copper absorption. Test developed and characteristics determined by [facility]. See Compliance Statement B: [employer] Performed by [facility], [address], [place] [id number] [email or web address], Ambrocio Luna MD - Lab. Director Specimen Blood Performing Organization Address [facility]/Zipcode Phone Number [facility] [address] [place] [address] * Vitamin A level, plasma or serum (04/20/2018 10:08 AM CDT) Vitamin A (retinol) 0.47 0.30 - 1.20 mg/L [facility] Retinyl palmitate <0.02 0.00 - 0.10 mg/L [facility] Vitamin A interpretation Normal [facility] Comment: Test developed and characteristics determined by [facility]. See Compliance Statement B: [employer]/ Performed by [facility], [address] [place] [address] www.[email or web address], Ambrocio Luna MD - Lab. Director Specimen Plasma specimen Performing Organization Address City/[facility]/Zipcode Phone Number [facility] [address] [place] [address] * Vitamin D 25 hydroxy level (04/20/2018 10:08 AM CDT) Vitamin D, 25-hydroxy 13.5 (L) 30.0 - 150.0 ng/mL [facility] DEPARTMENT OF Comment: PATHOLOGY AND This assay reports the sum of [employer] MEDICINE 25-hydroxy vitamin D3 and 25-hydroxy vitamin [...] alternative methods. Specimen Blood Performing Organization Address City/State/Zipcode Phone Number [address] [address] PATHOLOGY AND GENOMIC MEDICINE * CBC with platelet and differential (04/20/2018 10:08 AM CDT) WBC 6.14 4.50 - 11.00 k/uL [facility] DEPARTMENT OF PATHOLOGY AND GENOMIC MEDICINE RBC 4.42 4.20 - 5.50 m/uL [facility] DEPARTMENT OF PATHOLOGY AND GENOMIC MEDICINE HGB 11.4 (L) 12.0 - 16.0 g/dL [facility] DEPARTMENT OF PATHOLOGY AND GENOMIC MEDICINE HCT 37.8 37.0 - 47.0 % [facility] DEPARTMENT OF PATHOLOGY AND GENOMIC MEDICINE MCV 85.5 82.0 - 100.0 fL [facility] DEPARTMENT OF PATHOLOGY AND GENOMIC MEDICINE MCH 25.8 (L) 27.0 - 34.0 pg [facility] DEPARTMENT OF PATHOLOGY AND GENOMIC MEDICINE MCHC 30.2 (L) 31.0 - 37.0 g/dL [facility] DEPARTMENT OF PATHOLOGY AND GENOMIC MEDICINE RDW - SD 47.0 37.0 - 55.0 fL [facility] DEPARTMENT OF PATHOLOGY AND GENOMIC MEDICINE MPV 9.2 8.8 - 13.2 fL [facility] DEPARTMENT OF PATHOLOGY AND GENOMIC MEDICINE Platelet count 369 150 - 400 k/uL [facility] DEPARTMENT OF PATHOLOGY AND GENOMIC MEDICINE Nucleated RBC 0.00 /100 WBC [facility] DEPARTMENT OF PATHOLOGY AND GENOMIC MEDICINE Neutrophils 51.0 39.0 - 69.0 % [facility] DEPARTMENT OF PATHOLOGY AND GENOMIC MEDICINE Lymphocytes 40.2 25.0 - 45.0 % [facility] DEPARTMENT OF PATHOLOGY AND GENOMIC MEDICINE Monocytes 6.5 0.0 - 10.0 % [facility] DEPARTMENT OF PATHOLOGY AND GENOMIC MEDICINE Eosinophils 1.8 0.0 - 5.0 % [facility] DEPARTMENT OF PATHOLOGY AND GENOMIC MEDICINE Basophils 0.2 0.0 - 1.0 % [facility] DEPARTMENT OF PATHOLOGY AND GENOMIC MEDICINE Immature granulocytes 0.3Comment: "Immature 0.0 - 1.0 % [facility] DEPARTMENT OF granulocytes" (promyelocytes, PATHOLOGY AND myelocytes, metamyelocytes) GENOMIC MEDICINE Specimen Blood Performing Organization Address [facility] [place] [address] PATHOLOGY AND GENOMIC MEDICINE * T3 (04/20/2018 10:08 AM CDT) T3 72 (L) 80 - 200 ng/dL [facility] DEPARTMENT OF PATHOLOGY AND GENOMIC MEDICINE Specimen Plasma specimen Performing Organization Address [facility] [place] [address] PATHOLOGY AND GENOMIC MEDICINE * Thyroid stimulating hormone (04/20/2018 10:08 AM CDT) TSH 2.65 0.27 - 4.20 uIU/mL [facility] DEPARTMENT OF PATHOLOGY AND GENOMIC MEDICINE Specimen Plasma specimen Performing Organization Address [facility]/[place] [address] PATHOLOGY AND GENOMIC MEDICINE * T4, free (04/20/2018 10:08 AM CDT) T4, free 0.9 0.9 - 1.7 ng/dL [facility] DEPARTMENT OF PATHOLOGY AND GENOMIC MEDICINE Specimen Plasma specimen Performing Organization Address [facility] [address] PATHOLOGY AND GENOMIC MEDICINE * Parathyroid hormone (04/20/2018 10:08 AM CDT) PTH 70 (H) 15 - 65 pg/mL [facility] DEPARTMENT OF PATHOLOGY AND GENOMIC MEDICINE Specimen Blood Performing Organization Address [facility] [address] PATHOLOGY AND GENOMIC MEDICINE * Hemoglobin A1c (04/20/2018 10:08 AM CDT) Hemoglobin A1C 5.7 (H) 4.0 - 5.6 % [facility] DEPARTMENT OF Comment: PATHOLOGY AND HbA1c cutoffs for diagnosing GENOMIC MEDICINE diabetes: 4.0% - 5.6%=normal 5.7% - 6.4%=increased risk for diabetes (prediabetes) >=6.5%=diabetes Goals for glycemic control (ADA 2016) < 7.0%Target for non adults with diabetes. More or less stringent targets may be appropriate for individual patients. <7.5% Target for Children and adolescents with type 1 diabetes. Specimen Blood Performing Organization Address [facility] [place] [address] PATHOLOGY AND GENOMIC MEDICINE * Folate level (04/20/2018 10:08 AM CDT) Folate 11.4 4.8 - 24.2 ng/mL [facility] DEPARTMENT OF PATHOLOGY AND GENOMIC MEDICINE Specimen Serum Performing Organization Address [facility] [place] [address] PATHOLOGY [address] [facility] MEDICINE * Ferritin level (04/20/2018 10:08 AM CDT) Ferritin level <13 (A) 13 - 150 ng/mL [facility] DEPARTMENT OF PATHOLOGY AND GENOMIC MEDICINE Specimen Plasma specimen Performing Organization Address [facility] Phone Number [address] [place] [address] PATHOLOGY AND GENOMIC MEDICINE * Vitamin B12 level (04/20/2018 10:08 AM CDT) Vitamin B12 269 211 - 946 pg/mL [facility] DEPARTMENT OF Comment: PATHOLOGY AND Significant overlap exists GENOMIC MEDICINE between normal and deficiency states. However, most patients with deficiencies will have Serum B12 <200 pg/mL. Specimen Serum Performing Organization Address [facility] [place] [address] PATHOLOGY AND GENOMIC MEDICINE * Lipid panel (04/20/2018 10:08 AM CDT) Cholesterol 149 <200 mg/dL [facility] DEPARTMENT OF PATHOLOGY AND GENOMIC MEDICINE Triglycerides 98 <150 mg/dL [facility] DEPARTMENT OF PATHOLOGY AND GENOMIC MEDICINE HDL cholesterol 56 >40 mg/dL [facility] DEPARTMENT OF PATHOLOGY AND GENOMIC MEDICINE LDL cholesterol 83Comment: Result obtained by <100 mg/dL [facility] DEPARTMENT OF direct LDL measurement PATHOLOGY AND GENOMIC MEDICINE Lipid panel SeeBelow [facility] DEPARTMENT OF interpretation Comment: PATHOLOGY AND Total [...] mg/dL) Specimen Plasma specimen Performing Organization Address City/State/Zipcode Phone Number [facility] DEPARTMENT [address] [address] PATHOLOGY AND GENOMIC MEDICINE * Comprehensive metabolic panel (04/20/2018 10:08 AM CDT) Sodium 143 135 - 148 mEq/L [facility] DEPARTMENT OF PATHOLOGY AND GENOMIC MEDICINE Potassium 4.5 3.5 - 5.0 mEq/L [facility] DEPARTMENT OF PATHOLOGY AND GENOMIC MEDICINE Chloride 103 98 - 112 mEq/L [facility] DEPARTMENT OF PATHOLOGY AND GENOMIC MEDICINE CO2 29 24 - 31 mEq/L [facility] DEPARTMENT OF PATHOLOGY AND GENOMIC MEDICINE Anion gap 11@ANIO 7 - 15 mEq/L [facility] DEPARTMENT OF PATHOLOGY AND GENOMIC MEDICINE BUN 16 6 - 20 mg/dL [facility] DEPARTMENT OF PATHOLOGY AND GENOMIC MEDICINE Creatinine 0.85 0.50 - 0.90 mg/dL [facility] DEPARTMENT OF PATHOLOGY AND GENOMIC MEDICINE Glucose 92 65 - 99 mg/dL [facility] DEPARTMENT OF PATHOLOGY AND GENOMIC MEDICINE Calcium 8.7 8.3 - 10.2 mg/dL [facility] DEPARTMENT OF PATHOLOGY AND GENOMIC MEDICINE Protein 7.4 6.3 - 8.3 g/dL [facility] DEPARTMENT OF Comment: PATHOLOGY AND [place] GENOMIC MEDICINE 4.6-7.0 g/dL 1 week 4.4-7.6 g/dL 7 months-1year 5.1-7.3 g/dL 1-2 years5.6-7 .5 g/dL >3 years6.0-8 .0 g/dL 18-150 6.3-8.3 g/dL Albumin 3.4 (L) 3.5 - 5.0 g/dL [facility] DEPARTMENT OF PATHOLOGY AND GENOMIC MEDICINE A/G ratio 0.8 0.7 - 3.8 [facility] DEPARTMENT OF PATHOLOGY AND GENOMIC MEDICINE Alkaline phosphatase 110 (H) 35 - 104 U/L [facility] DEPARTMENT OF PATHOLOGY AND GENOMIC MEDICINE AST 14 10 - 35 U/L [facility] DEPARTMENT OF PATHOLOGY AND GENOMIC MEDICINE ALT 8 5 - 50 U/L [facility] DEPARTMENT OF PATHOLOGY AND GENOMIC MEDICINE Total bilirubin 0.3 0.0 - 1.2 mg/dL [facility] DEPARTMENT OF PATHOLOGY AND GENOMIC MEDICINE Specimen Plasma specimen Performing Organization Address City/State/Zipcode Phone Number [facility] DEPARTMENT OF [address] [place] [address] PATHOLOGY AND GENOMIC MEDICINE after 06/05/2017 Insurance Payer Benefit Subscriber ID Type Phone Address Plan / Group AETNA MEDICARE AETNA xxxxxxxx HMO MEDICARE HMO/PPO MCR MEDICAID MEDICAID xxxxxxxxx Medicaid Advance Directives Patient has advance care planning documents on file. For more information, amanda sparks contact: Greyson Mccann [address] [place] [address]
[2018-06-06] MEDS ORDERED: DEXAMETHASONE SOD PHOS 10 MG/1 ML VIAL IM ONE (00:45)
[2018-06-06] MEDS ORDERED: KETOROLAC TROMETHAMINE 60 MG/2 ML VIAL IM ONE (00:45)
--- NOTE | 2018-06-06 01:31 | Diagnostic Imaging Report ---
Cervical Spine, 3 views HISTORY: Chronic neck pain. Left-sided neck pain for 3 days. COMPARISON: None. FINDINGS: Limited sensitivity for detection of subtle fractures and ligamentous abnormalities. On the lateral view, the cervical spine is visualized from the skull base to C7. The alignment is normal. Straightening of the cervical lordosis, likely positional. No acute displaced fracture involving the visualized cervical spine. Disc Spaces and Uncovertebral Joints: Unremarkable. Facets: The facet joints are unremarkable. IMPRESSION: No acute radiographic abnormality. Signed by: DR. Jeffrey Brooks MD on 06/06/2018 1:27 AM
== END 2018-06-06 01:55 | disposition home or self-care (01) ==
LOC: FSED 00:18
DX: M54.2 Cervicalgia (principal); S16.1XXA Strain of muscle, fascia and tendon at neck level, initial encounter; S29.012A Strain of muscle and tendon of back wall of thorax, initial encounter; M25.511 Pain in right shoulder; M79.621 Pain in right upper arm; M54.32 Sciatica, left side; I51.9 Heart disease, unspecified; E66.01 Morbid (severe) obesity due to excess calories; M79.7 Fibromyalgia; M32.9 Systemic lupus erythematosus, unspecified
CPT/HCPCS: 72040; 99283